=== PATIENT | female | born 1945 | race Caucasian/White ===

== ENCOUNTER 2020-07-29 11:05 | Outpatient (CLI) | payer MEDICARE, SELFPAY ==
--- NOTE | 2020-07-29 11:26 | ECG_ITS ---
Measurements Intervals [place] Rate: 76 P: 31 [place]: 152 QRS: -13 QRSD: 98 T: -8 QT: 369 QTc: 416 Interpretive Statements SINUS RHYTHM LOW QRS VOLTAGE IN PRECORDIAL LEADS VOLTAGE CRITERIA FOR LVH BORDERLINE R WAVE PROGRESSION, ANTERIOR LEADS BORDERLINE ST-T WAVE ABNORMALITY- INFERIOR LEADS BASELINE ARTIFACT- I, II, III BORDERLINE ECG Electronically Signed On 07-29-2020 12:18:06 CDT by Earnest Barbosa D.O.
[2020-07-29 12:10] LABS: Anion Gap 7 mmol/L (8-16); Blood Urea Nitrogen 23 mg/dL (7-17); Calcium 10.1 mg/dL (8.4-10.2); Carbon Dioxide 30 mmol/L (22-30); Chloride 102 mmol/L (98-107); Estimated Glomerular Filt Rate 54; Glucose 317 mg/dL (65-105); Potassium 4.6 mmol/L (3.4-5.0); Sodium 139 mmol/L (137-145)
== END 2020-07-29 11:06 | disposition home or self-care (01) ==
PROVIDERS: Anesthesiology; PCP Family Medicine; Visit Provider Otolaryngology
DX: Z01.818 Encounter for other preprocedural examination (principal); E11.9 Type 2 diabetes mellitus without complications
CPT/HCPCS: 36415; 80048; 93005

== ENCOUNTER → 2020-08-02 03:07 | Outpatient (CLI) | payer MEDICARE, SELFPAY ==
[2020-08-02 18:14] LABS: SARS-CoV-2 RNA PCR Negative
== END ==
PROVIDERS: PCP Family Medicine; Visit Provider Otolaryngology
DX: Z01.812 Encounter for preprocedural laboratory examination (principal); Z20.822 Contact with and (suspected) exposure to COVID-19
CPT/HCPCS: C9803; U0003; U0005

== ENCOUNTER 2020-08-05 00:40 | Day surgery (SDC) | payer MEDICARE, SELFPAY ==
[2020-07-26 08:21] VITALS: BMI 40.0
--- NOTE | 2020-08-04 09:11 | PM.IMHP ---
H&P: HPI History of Present Illness Date/Time: 08/04/20 09:11 patient presents for planned surgical procedure. Risks were discussed. No changes in symptoms or medical history. Chief Complaint: Isthmus thyroid nodule Review of Systems Constitutional: Constitutional: Denies fatigue, Denies fever(s) and Denies lethargy Eyes: Eyes: Denies blurry vision and Denies change in vision ENT: Reports as per HPI Cardiovascular: Cardiovascular: Denies chest pain Respiratory: Respiratory: Denies cough Endocrine: Endocrine: Denies fatigue Hematologic/Lymphatic: Hematologic/Lymphatic: Denies easy bleeding, Denies easy bruising and Denies lymphadenopathy Allergic/Immunologic: Allergic/Immunologic: Denies seasonal rhinorrhea [facility] Past Medical History Medical History (Updated 01/19/20 @ 14:35 by Grace Gimenez MD) Cervical cancer Surgical History Surgical History H/O: hysterectomy S/P removal of parathyroid gland Family History Family History Grandparent Family history of cataracts Father Family history of heart disease in male family member before age 55 Mother Family history of heart disease in male family member before age 55 Social History Social History Smoking status: Never smoker Second hand tobacco smoke exposure: No Alcohol intake: current Substance use: never Substance use type: does not use Spiritual care concerns: No Meds Home Medications and Allergies Home Medications Medication Instructions Recorded Confirmed Type atorvastatin 10 mg tablet 20 mg PO HS 12/07/19 07/26/20 History blood sugar diagnostic #50 each 12/07/19 05/24/20 Rx blood-glucose meter #1 each 12/07/19 05/24/20 Rx lisinopril 30 mg tablet 30 mg PO DAILY 12/07/19 07/26/20 History lancets 31 gauge #100 each 12/09/19 05/24/20 Rx cholecalciferol (vitamin D3) 25 25 mcg PO DAILY 05/24/20 07/26/20 History mcg (1,000 unit) capsule multivitamin 1 tablet PO DAILY 05/24/20 07/26/20 History pen needle, diabetic 32 gauge x #50 ea 05/24/20 05/24/20 Rx 5/16 zinc 50 mg tablet 50 mg PO DAILY 05/24/20 07/26/20 History glipizide 10 mg tablet 10 mg PO DAILY 30 Days #30 tablet 05/25/20 07/26/20 Rx metformin 500 mg tablet 500 mg PO DAILY 30 Days #30 tablet 05/27/20 07/26/20 Rx dulaglutide 1.5 mg/0.5 mL 1.5 mg SUB-Q WEEKLY 90 Days #6 ml 05/31/20 07/26/20 Rx subcutaneous pen injector insulin degludec 100 unit/mL (3 14 unit SUBCUT DAILY 90 Days #12.6 06/03/20 07/26/20 Rx mL) subcutaneous pen ml aspirin 81 mg tablet,delayed 81 mg PO DAILY 06/29/20 07/26/20 History release biotin 1 mg PO DAILY 07/26/20 07/26/20 History cinnamon bark [Cinnamon] 500 mg PO DAILY 07/26/20 07/26/20 History cyanocobalamin (vitamin B-12) 100 mcg PO DAILY 07/26/20 07/26/20 History liraglutide [Victoza 3-Guero] 0.6 mg SUBCUT DAILY 07/26/20 07/26/20 History Allergies Allergy/AdvReac Type Severity Reaction Status Date / Time egg Allergy Unknown Abdominal Verified 07/26/20 08:11 Pain Exam Const: General: cooperative, healthy appearing, comfortable, well developed and alert HENMT: Head: normal to inspection, normocephalic and atraumatic Ears: hearing grossly normal bilaterally, external ears normal, TM's normal bilaterally and EAC's normal General nose exam: Normal external nose present, Normal nares present, No nasal polyps present, Normal nasal mucous membranes and turbinates present and Normal septum present Face and sinus: normal facial exam Mouth: Yes Normal oral and palatal mucosa present, Yes lip normal, Yes tongue normal, Yes oropharynx normal and Yes moist mucous membranes Teeth and gingiva: dentition normal and gingiva normal Throat: posterior oropharynx normal, tonsils normal and uvula midline Eyes: General: appearance normal, both eyes and all related structures Periorbital: per
[2020-08-05] VITALS (7 sets, daily range): BP systolic 125–151; BP diastolic 64–69; PULSE 75–90; RESP 14–18; TEMP 35.8–36.6; O2SAT 96–98; BMI 37.5
--- NOTE | 2020-08-05 07:13 | WPDHPUPDATE1 ---
History and Physical Update Update Date/Time: 08/05/20 07:13 History and Physical has been reviewed, including an updated exam of the patient. There are NO changes in the patient's condition. Risks, benefits, and alternatives have been discussed and questions answered. Patient agrees to proceed with procedure.
[2020-08-05] MEDS: ACETAMINOPHEN 500 MG TABLET 1000 MG PO (07:20)
--- NOTE | 2020-08-05 07:30 | SUR.PREOP ---
0730- Notified Dr. Rivas patient's BG [address] Rivas he will place orders for insulin administration.
[2020-08-05 07:32] LABS: Glucose Point of Care 217 mg/dl (65-105)
[2020-08-05] MEDS: LACTATED RINGERS 1,000 ML 30 ML IV CONT (07:32)
[2020-08-05] MEDS: INSULIN HUMAN REGULAR (*BKC) 100 UNITS/ML 6 UNITS SUB-Q (07:38)
[2020-08-05] MEDS: ceFAZolin 2 GM/D5W 50 ML 2 GM/50 ML BAG IVPB (07:55)
[2020-08-05] MEDS: LIDO 1%/EPINEPHRINE/PF 1:200,000 30 ML VIAL XX (08:25)
--- NOTE | 2020-08-05 08:57 | SUR.OPER ---
FROZEN SECTION SPECIMEN SENT WITH Vince PETTY AND RECEIVED IN PATHOLOGY BY RANDAL
--- NOTE | 2020-08-05 09:43 | SUR.PHASEI ---
0935- BAY drain to anterior neck incision. no drainage present.
[2020-08-05 09:44] LABS: Glucose Point of Care 216 mg/dl (65-105)
--- NOTE | 2020-08-05 09:49 | PM.PROC ---
Procedure Note - Detailed Date of procedure: 08/05/20 Pre-op diagnosis: mid thryoid mass Thyroid isthmus nodule Post-op diagnosis: same Procedure performed: Thyroid isthmusectomy Description of procedure: The patient was correctly identified and consent was verified in the preoperative holding area. The patient was then brought to the operating room and a time-out was performed. General anesthesia was induced and endotracheal tube was secured the patient's airway and taped to the midline. Patient was then prepped and draped for the aforementioned procedure. 2 cc of 1% lidocaine with 1 100,000 parts epinephrine was injected under pre drawn surgical incision the midline. A 15 blade was utilized to make a epidermal and dermal incision Bovie electrocautery was utilized to dissect down through the platysma. Superior and inferior based platysmal flaps were elevated. The midline was identified in Bovie electrocautery as well as blunt dissection were utilized to dissect down to the thyroid. The isthmus was easily identified. The thyroid isthmus was firs or further dissected and freed from the airway. The isthmus and nodule were removed using a combination of Bovie electrocautery as well as Harmonic. One other nodule was found just right of the isthmus and this was removed with Bovie electrocautery. Hemostasis was adequate. The wound was copiously irrigated with sterile normal saline. Valsalva was performed and again hemostasis was noted to be excellent. A drain was placed and sutured in the skin the wound was closed in the deep layers with 3 0 interrupted Vicryl sutures this as the strap muscles reapproximated and the platysma was reapproximated. Deep dermal sutures were placed using 3 0 Vicryl sutures and the skin was closed using glue as it approximated perfectly. There were no complications. I performed all dictated portions of the procedure. Care the patient was turned over to Anesthesiology once all counts were confirmed. Anesthesia: GETA Surgeon: Fransico Merrill MD Estimated blood loss (mL): 10 Drains: Yes Packing: No Pathology: yes Complications: No immediate complications Condition: stable Disposition: PACU Findings: Thyroid nodule slightly to left in the isthmus and right thyroid nodule abutting the isthmus
--- NOTE | 2020-08-05 10:48 | SUR.PHASEII ---
Called Dr. Merrill and left a message asking when patient should resume aspirin.
== END 2020-08-05 11:17 | disposition home or self-care (01) ==
PROVIDERS: PCP Family Medicine; Visit Provider Otolaryngology
PROC: (CPT 60210; principal; 2020-08-05 07:45)
DX: E04.1 Nontoxic single thyroid nodule (principal); E06.3 Autoimmune thyroiditis; Z79.82 Long term (current) use of aspirin; Z79.84 Long term (current) use of oral hypoglycemic drugs
CPT/HCPCS: 60210; 82948; 88305; 88307; 88331; A9270; J0690; J1815; J3010; J7120